=== PATIENT | male | born 1990 | race Caucasian/White ===

== ENCOUNTER 2017-11-10 12:29 | Emergency (ER) | payer BC ==
--- NOTE | 2017-11-10 12:51 | EDPHY ---
H & P Smoking Status: Never smoked Time Seen by Provider: 11/10/17 12:38 HPI/ROS: CHIEF COMPLAINT: Left lateral ankle pain post basketball HISTORY OF PRESENT ILLNESS: 27-year-old male arrives via private vehicle complaining of acute left lateral ankle pain after he jumped up during basketball landed rolled his foot. Complaining of lateral ankle pain reproducible with palpation and weight-bearing. Unable to bear weight. No calcaneus pain. No knee or proximal tibia or fibula pain. No back pain. No paresthesia. PHYSICAL EXAM (Prior to examination, patient consented to physical exam, hands were washed and my usual and customary physical exam procedures followed) 1) GENERAL: Well-developed, well-nourished, alert and oriented. Appears to be in no acute distress. 2) HEAD: Normocephalic 3) HEENT: Pupils equal, round, reactive to light bilaterally. 4) LUNGS: Breathing comfortably. 5) MUSCULOSKELETAL: Soft tissue swelling and tenderness to the lateral malleolus. Soft tissue swelling and no tenderness to the medial malleolus. proximal tibia and fibula nontender .5th MT nontender negative Medina test, compartments soft 6) SKIN: Intact no tenting 7) VASCULAR: DP,PT pulses and cap refill present and brisk DIFFERENTIAL DIAGNOSIS: in no particular order including but not limited to fracture, sprain, compartment syndrome Procedure: Crutches indications for crutch use discussed with patient. Patient fitted for crutches by ER staff. Observed ambulating with crutches. I think the patient has the capacity to safely use crutches. Usual and customary crutch walking precautions provided Procedure: Splint A [place] boot splint was applied by ER bike technician. After application of the splint I returned and re-examined the patient. The splint was adequately immobilizing the joint and distal to the splint the patient's circulation and sensation were intact. Patient shows no signs of compartment syndrome. Was given orthopedic precautions. (Nanci Tony) Constitutional: Initial Vital Signs Temperature (C) 36.7 C 11/10/17 12:33 Heart Rate 74 11/10/17 12:33 Respiratory Rate 18 11/10/17 12:33 Blood Pressure 154/91 H 11/10/17 12:33 O2 Sat (%) 97 11/10/17 12:33 O2 Delivery Mode Room Air Allergies/Adverse Reactions: Penicillins Allergy (Verified 11/10/17 12:32) Home Medications: Medication Instructions Recorded EXCEDRIN EXTRA STRENGTH CAPLET 09/22/15 Ibuprofen [Motrin (*)] 600 mg PO Q6 #15 tab 11/10/17 MDM/Departure - MDM Imaging Results: Images reviewed by myself (Nanci Tony) ED Course/Re-evaluation: Re-evaluation with serial examinations. He remains neurovascularly intact. No evidence of compartment syndrome. Discussed his imaging results. Plan will be discharged with usual and customary orthopedic precautions and instructions. Care of patient under supervision of secondary supervising physician Dr Jori Boles. (Nanci Tony) I did not see this patient while he was in the emergency department. However his care was discussed with the PA while the patient was in the department. I agree with treatment plan and management (Jori Boles) - Depart Disposition: Home, Routine, Self-Care Clinical Impression: Left ankle sprain Condition: Good Instructions: Ankle Sprain (ED) Additional Instructions: Return to the ER immediately if you experience discoloration, have worsening pain, numbness, tingling, or any other symptoms that concern you. If you received x-rays in the emergency department today, be advised, that ligamentous , tendon, muscular, and other non-bony injury cannot be fully ruled out. Try to keep your affected extremity elevated above the level of your chest, and keep cold packs on the affected area, for the next 48 hours. Prescriptions: Ibuprofen [Motrin (*)] 600 mg PO Q6 #15 tab Referrals: Juan Lopez MD [Medical Doctor] - 2-3 days, call for appt.
[2017-11-10 13:19] VITALS: BP 147/89
== END 2017-11-10 13:44 | disposition home or self-care (01) ==
DX: S93.402A Sprain of unspecified ligament of left ankle, initial encounter (principal); X50.9XXA Other and unspecified overexertion or strenuous movements or postures, initial encounter; Y99.8 Other external cause status; Y93.67 Activity, basketball
CPT/HCPCS: L4386

== ENCOUNTER → 2018-08-27 | Outpatient (CLI) | payer BC | LOC: FIMAGING 07:44 | PROVIDERS: ATTEND Family Medicine | DX: J34.1 Cyst and mucocele of nose and nasal sinus (principal); Z87.820 Personal history of traumatic brain injury ==

== ENCOUNTER → 2018-08-28 | Outpatient (CLI) | payer BC | LOC: GIMAGING 10:01 → EDSTATUS 15:42 | PROVIDERS: ATTEND Family Medicine | DX: R07.1 Chest pain on breathing (principal); R91.8 Other nonspecific abnormal finding of lung field | CPT/HCPCS: 71046-PO ==